=== PATIENT | female | born 1970 | race Caucasian/White ===

== ENCOUNTER 2017-12-29 15:45 | Emergency (ER) | payer OTHER ==
[2017-12-29 16:11] VITALS: RESP 18
--- NOTE | 2017-12-29 16:45 | ED ---
Female Urogenital HPI - General Chief complaint: Urogenital Stated complaint: Female Gu Time Seen by Provider: 12/29/17 16:15 Source: patient, RN notes reviewed Mode of arrival: ambulatory Limitations: no limitations - History of Present Illness Initial comments: Is a 47-year-old female presents emergency Department chief complaint of left groin swelling. Patient's had some swelling which has worsened over the last couple days. She was seen in urgent care sent here for evaluation. She states is no drainage she states is very sore. Patient states that she has been recently working out an area has been rubbing together. Patient denies any vaginal discharge no vaginal bleeding. Denies any fever, chills, abdominal pain. - Related Data Home Medications Medication Instructions Recorded Confirmed Atorvastatin [Lipitor] 20 mg PO HS 12/29/17 12/29/17 LORazepam [Ativan] 1 mg PO HS PRN 12/29/17 12/29/17 Phentermine HCl [Adipex-P] 37.5 mg PO Q48H 12/29/17 12/29/17 Previous Rx's Medication Instructions Recorded Hydrocodone/Acetaminophen [[place] 1 tab PO Q6HR PRN #12 tab 12/29/17 5-325] Ibuprofen [Motrin] 600 mg PO Q8HR PRN #30 tab 12/29/17 Sulfamethox-Tmp 800-160Mg [Bactrim 1 each PO Q12HR #20 tab 12/29/17 Ds] Allergies Allergy/AdvReac Type Severity Reaction Status Date / Time No Known Allergies Allergy Verified 12/29/17 16:43 Review of Systems ROS Statement: Those systems with pertinent positive or pertinent negative responses have been documented in the HPI. ROS Other: All systems not noted in ROS Statement are negative. Past Medical History Past Medical History: Hyperlipidemia History of Any Multi-Drug Resistant Organisms: None Reported Past Surgical History: Appendectomy, Tubal Ligation Past Psychological History: Anxiety Smoking Status: Current every day smoker Past Alcohol Use History: Occasional Past Drug Use History: None Reported General Exam Limitations: no limitations General appearance: alert, in no apparent distress Respiratory exam: Present: normal lung sounds bilaterally. Absent: respiratory distress, wheezes, rales, rhonchi, stridor Cardiovascular Exam: Present: regular rate, normal rhythm, normal heart sounds. Absent: systolic murmur, diastolic murmur, rubs, gallop, clicks GI/Abdominal exam: Present: soft, normal bowel sounds. Absent: distended, tenderness, guarding, rebound, rigid External exam: Absent: normal external exam (Lateral to the left side of the labia there is moderate amount of swelling that is in a more elongated region approximately 4 cm x 1 cm firm nonfluctuant and tender with palpation mild erythema) Skin exam: Present: warm, dry, intact, normal color. Absent: rash Course Vital Signs 12/29/17 12/29/17 16:08 17:23 Temperature 99.2 F 97.7 F Pulse Rate 91 99 Respiratory 18 18 Rate Blood Pressure 131/73 120/73 O2 Sat by Pulse 95 99 Oximetry Medical Decision Making - Medical Decision Making 47-year-old female presents from for swelling to her left groin region. Patient does have area swelling and concern for infection. Clinical exam it appears to be supportive hydradenitis. Patient will be discharged on antibiotics, pain medication follow-up with Dr. Alicia for surgical intervention. Disposition Clinical Impression: Hidradenitis suppurativa Disposition: HOME SELF-CARE Condition: Stable Instructions: Hidradenitis Suppurativa (ED) Additional Instructions: Please return to the Emergency Department if symptoms worsen or any other concerns. Prescriptions: Hydrocodone/Acetaminophen [[place] 5-325] 1 tab PO Q6HR PRN #12 tab PRN Reason: Pain Ibuprofen [Motrin] 600 mg PO Q8HR PRN #30 tab PRN Reason: Pain Sulfamethox-Tmp 800-160Mg [Bactrim Ds] 1 each PO Q12HR #20 tab Is patient prescribed a controlled substance at d/c from ED?: Yes If prescribed controlled substance>3 days was MAPS reviewed?: No When asked, does pt state using other controlled substances?: Yes Referrals: Rick Hannah DO [Primary Care Provider] - 1-2 days Dev Alicia MD [STAFF PHYSICIAN] - 1-2 days Time of Disposition: 17:29
--- NOTE | 2017-12-29 17:06 | US ---
EXAMINATION TYPE: US groin LT DATE OF EXAM: 12/29/2017 COMPARISON: NONE CLINICAL HISTORY: Painful red lump within the left groin after shaving Complex area with peripheral vascularity visualized measuring 1.9 x 1.0 x 1.1 cm IMPRESSION: Suspect soft tissue infection or cellulitis at area of clinical concern.
[2017-12-29] MEDS ORDERED: HYDROcodone/APAP 5-325MG 1 EACH TAB PO STA (17:13)
[2017-12-29 17:33] VITALS: BP 120/73; PULSE 99; TEMP 97.7
== END 2017-12-29 17:39 | disposition home or self-care (01) ==
LOC: EC 15:45
DX: L73.2 Hidradenitis suppurativa (principal); E78.5 Hyperlipidemia, unspecified; F17.200 Nicotine dependence, unspecified, uncomplicated; Z79.899 Other long term (current) drug therapy
CPT/HCPCS: 99283

== ENCOUNTER 2020-09-05 14:14 | Emergency (ER) | payer OTHER ==
[2020-09-05] MEDS ORDERED: SODIUM CHLORIDE 0.9% 1,000 ML IV STA (15:09)
[2020-09-05] MEDS ORDERED: MORPHINE SULFATE 4 MG/ML SYRINGE IVP STA (15:28)
[2020-09-05 15:52] LABS: Basophils % (A) 0 %; Eosinophils % (A) 0 %; HCT 41.8 % (34.0-46.0); HGB 14.1 gm/dL (11.4-16.0); Lymphocytes # (A) 1.7 k/uL (1.0-4.8); Lymphocytes % (A) 13 %; MCH 29.8 pg (25.0-35.0); MCHC 33.7 g/dL (31.0-37.0); MCV 88.2 fL (80.0-100.0); Mean Platelet Volume 8.1; Monocytes # (A) 0.6 k/uL (0-1.0); Monocytes % (A) 5 %; Neutrophils # (A) 11.2 k/uL (1.3-7.7); Neutrophils % (A) 81 %; Platelet Count 201 k/uL (150-450); RBC 4.74 m/uL (3.80-5.40); RDW 12.4 % (11.5-15.5); WBC 13.7 k/uL (3.8-10.6)
[2020-09-05 16:08] LABS: ALT 47 U/L (4-34); AST 25 U/L (14-36); African American GFR (CKD) >90 (>60 ml/min/1.73 sqM); Albumin 4.3 g/dL (3.5-5.0); Alkaline Phosphatase 40 U/L (38-126); Anion Gap 9 mmol/L; Blood Urea Nitrogen 11 mg/dL (7-17); Calcium 9.3 mg/dL (8.4-10.2); Carbon Dioxide 24 mmol/L (22-30); Chloride 103 mmol/L (98-107); Glucose 166 mg/dL (74-99); Non-African American GFR(CKD) >90 (>60 ml/min/1.73 sqM); Potassium 4.1 mmol/L (3.5-5.1); Sodium 136 mmol/L (137-145); Total Bilirubin 0.7 mg/dL (0.2-1.3); Total Protein 7.4 g/dL (6.3-8.2)
--- NOTE | 2020-09-05 16:09 | ED ---
General Adult HPI - General Chief complaint: Extremity Problem,Nontraumatic Stated complaint: Groin pain,+COVID Time Seen by Provider: 09/05/20 14:32 Source: patient, RN notes reviewed Mode of arrival: ambulatory Limitations: no limitations - History of Present Illness Initial comments: She is a 49-year-old female with a past medical history of hyperlipidemia. Patient is presenting to the emergency department for a chief complaint of severe left groin pain. Patient states it is very tender and red. Painful to move. She denies fevers. Patient states this has presented over the past 3-4 days. She denies any associated abdominal pain or rectal pain.Patient has no other complaints at this time including shortness of breath, chest pain, abdomin al pain, nausea or vomiting, headache, or visual changes. - Related Data Home Medications Medication Instructions Recorded Confirmed Acetaminophen Tab [Tylenol Tab] 1,000 mg PO Q6HR PRN 09/05/20 09/05/20 Atorvastatin [Lipitor] 40 mg PO HS 09/05/20 09/05/20 traZODone HCL [Desyrel] 100 mg PO HS 09/05/20 09/05/20 Previous Rx's Medication Instructions Recorded Cephalexin [Keflex] 500 mg PO Q6HR 10 Days #40 cap 09/05/20 Sulfamethox-Tmp 800-160Mg [Bactrim 1 tab PO Q12HR #20 tab 09/05/20 DS 800-160 mg] Allergies Allergy/AdvReac Type Severity Reaction Status Date / Time No Known Allergies Allergy Verified 09/05/20 14:52 Review of Systems ROS Statement: Those systems with pertinent positive or pertinent negative responses have been documented in the HPI. ROS Other: All systems not noted in ROS Statement are negative. Past Medical History Past Medical History: Hyperlipidemia History of Any Multi-Drug Resistant Organisms: None Reported Past Surgical History: Appendectomy, Tubal Ligation Past Psychological History: Anxiety Past Alcohol Use History: Occasional Past Drug Use History: None Reported General Exam Limitations: no limitations General appearance: alert, in no apparent distress Head exam: Present: atraumatic, normocephalic, normal inspection Eye exam: Present: normal appearance, PERRL, EOMI. Absent: scleral icterus, conjunctival injection, periorbital swelling ENT exam: Present: normal exam, mucous membranes moist Neck exam: Present: normal inspection, full ROM. Absent: tenderness, meningismus, lymphadenopathy Respiratory exam: Present: normal lung sounds bilaterally. Absent: respiratory distress, wheezes, rales, rhonchi, stridor Cardiovascular Exam: Present: regular rate, normal rhythm, normal heart sounds. Absent: systolic murmur, diastolic murmur, rubs, gallop, clicks GI/Abdominal exam: Present: soft, normal bowel sounds. Absent: distended, tenderness, guarding, rebound, rigid Rectal exam: Present: other (Patient has erythema and induration noted of the groin extending to the anterior buttock. No obvious abscess or drainage point.) Course Vital Signs 09/05/20 09/05/20 09/05/20 14:19 15:34 16:16 Temperature 98.2 F 99.0 F Pulse Rate 88 79 80 Respiratory 18 18 18 Rate Blood Pressure 122/80 137/66 132/72 O2 Sat by Pulse 97 99 99 Oximetry 09/05/20 17:05 Temperature Pulse Rate 80 Respiratory 17 Rate Blood Pressure 147/81 O2 Sat by Pulse 100 Oximetry Procedures - Incision & Drainage Consent Obtained: verbal consent Site: lower extremity Size (cm): 3 Anesthetic Used: lidocaine 1% Amount (mLs): 7 I&D Cleaning Method: Chloroprep Sterile Field Used?: Yes Scalpel Used: #11 I&D Drainage Obtained: Pus, Blood Culture Obtained?: Yes Patient Tolerated Procedure: well, no complications Medical Decision Making - Medical Decision Making Are stable. Patient is afebrile. Physical exam does reveal erythema noted of the left groin area and anterior buttock. CBC shows leukocytosis of 13.7 with left shift. CMP unremarkable. Pelvis CT with contrast shows cellulitis along the junction of the medial upper left thigh and perineum. There is an accompanying subcutaneous abscess just deep to the skin surface measuring 3.3 x 2.5 cm. No involvement of deeper soft tissue structures. There are also asymmetric left inguinal lymph nodes. Dr. Leslie also evaluated patient, recommending incision and drainage at this time. I did do incision and drainage and copious purulent material was expelled. I did offer patient admission however she much prefers to go home. I had a lengthy discussion with her about strict return parameters. If this gets worse she must be admitted. She will start Keflex and Bactrim. She will return here for any worsening symptoms. She will follow-up with her doctor this week. - Lab Data Result diagrams: 09/05/20 15:30 09/05/20 15:30 Lab Results 09/05/20 09/05/20 09/05/20 Range/Units 15:30 15:30 15:30 WBC 13.7 H (3.8-10.6) k/uL RBC 4.74 (3.80-5.40) m/uL Hgb 14.1 (11.4-16.0) gm/dL Hct 41.8 (34.0-46.0) % MCV 88.2 (80.0-100.0) fL MCH 29.8 (25.0-35.0) pg MCHC 33.7 (31.0-37.0) g/dL RDW 12.4 (11.5-15.5) % Plt Count 201 (150-450) k/uL MPV 8.1 Neutrophils % 81 % Lymphocytes % 13 % Monocytes % 5 % Eosinophils % 0 % Basophils % 0 % Neutrophils # 11.2 H (1.3-7.7) k/uL Lymphocytes # 1.7 (1.0-4.8) k/uL Monocytes # 0.6 (0-1.0) k/uL Eosinophils # 0.0 (0-0.7) k/uL Basophils # 0.0 (0-0.2) k/uL Sodium 136 L (137-145) mmol/L Potassium 4.1 (3.5-5.1) mmol/L Chloride 103 (98-107) mmol/L Carbon Dioxide 24 (22-30) mmol/L Anion Gap 9 mmol/L BUN 11 (7-17) mg/dL Creatinine 0.72 (0.52-1.04) mg/dL Est GFR (CKD-EPI)AfAm >90 (>60 ml/min/1.73 sqM) Est GFR (CKD-EPI)NonAf >90 (>60 ml/min/1.73 sqM) Glucose 166 H (74-99) mg/dL Plasma Lactic Acid Felix 1.5 (0.7-2.0) mmol/L Calcium 9.3 (8.4-10.2) mg/dL Total Bilirubin 0.7 (0.2-1.3) mg/dL AST 25 (14-36) U/L ALT 47 H (4-34) U/L Alkaline Phosphatase 40 (38-126) U/L Total Protein 7.4 (6.3-8.2) g/dL Albumin 4.3 (3.5-5.0) g/dL Disposition Clinical Impression: Cellulitis, Abscess Disposition: HOME SELF-CARE Condition: Good Instructions (If sedation given, give patient instructions): Abscess Incision and Drainage (ED), Abscess (ED) Additional Instructions: Please apply warm compresses to the area several times daily or do baths. P lease take antibiotic as directed. Follow-up with your primary care doctor this week. If you are developing worsening symptoms return to the emergency room. Prescriptions: Sulfamethox-Tmp 800-160Mg [Bactrim DS 800-160 mg] 1 tab PO Q12HR #20 tab Cephalexin [Keflex] 500 mg PO Q6HR 10 Days #40 cap Is patient prescribed a controlled substance at d/c from ED?: No Referrals: Victor Hugo Sales MD [Primary Care Provider] - 1-2 days Time of Disposition: 17:40
[2020-09-05 16:18] VITALS: PULSE 80; TEMP 99
--- NOTE | 2020-09-05 16:21 | CT ---
EXAMINATION TYPE: CT pelvis w con DATE OF EXAM: 09/05/2020 COMPARISON: NONE HISTORY: 49-year-old female pain, groin infection, redness, inner thigh/inguinal crease TECHNIQUE: Contiguous axial scanning of the pelvis following administration of 100 ml Isovue 300 IV c ontrast. Delayed images through the bladder and coronal/sagittal reconstructions performed. CT DLP: 981.6 mGycm Automated exposure control for dose reduction was used. FINDINGS: Visualized kidneys, spleen, and liver show no gross abnormality. Only a small portion of these struct ures are visualized. Nonspecific scattered fluid-filled small bowel loops. No abnormal dilatation. No free air or free flu id seen. No mesenteric or retroperitoneal lymphadenopathy. Mineral scattered stool. No pericolonic inflammatory change. Small fatty umbilical hernia. Uterus is anteverted but retroflexed. Both ovaries are visualized. There is a 2.0 cm dominant follicl e or functional cyst in the right ovary. No abnormal fluid collection in the pelvis. Asymmetrically larger left renal lymph nodes are demonstrated measuring up to 3.7 x 1.3 cm, coronal i mage 36 and axial image 50. There is inflammatory fat stranding along the upper medial left thigh adjacent to the labia majora. T here is a corresponding abscess just deep to the skin surface measuring 3.3 cm cranial caudal by 1.8 cm wide by 2.5 cm AP. Bones mild to moderate degenerative disc disease L4-L5 and L5-S1. IMPRESSION: 1. CELLULITIS ALONG THE JUNCTION OF THE MEDIAL UPPER LEFT THIGH AND PERINEUM. THERE IS AN ACCOMPANYIN G SUBCUTANEOUS ABSCESS JUST DEEP TO THE SKIN SURFACE MEASURING 3.3 X 2.5 X 1.8 CM. NO INVOLVEMENT OF THE DEEPER SOFT TISSUE STRUCTURES. 2. SOME ASYMMETRICALLY LARGER REACTIVE LYMPH NODES IN THE LEFT INGUINAL REGION.
[2020-09-05] MEDS ORDERED: HYDROmorphone 1 MG/ML 1 ML SYRINGE IVP STA (16:55)
[2020-09-05] MEDS ORDERED: cefTRIAXone IN SWFI 1,000 MG/10 ML SYRINGE IVP STA (16:56)
[2020-09-05] MEDS ORDERED: LIDOCAINE 1% INJ 10MG/ML (20 ML MDV) SQ ONE (17:10)
[2020-09-05 17:11] VITALS: BP 147/81; RESP 17
[2020-09-05] MEDS ORDERED: SULFAMETH-TMP DS STARTER PACK 2 TAB BTL PO STA (17:38)
[2020-09-05] MEDS ORDERED: CEPHALEXIN 500MG STARTER PACK 4 CAP BTL PO STA (17:38)
== END 2020-09-05 18:01 | disposition home or self-care (01) ==
LOC: EC 14:14
DX: L02.214 Cutaneous abscess of groin (principal); L03.116 Cellulitis of left lower limb; E78.5 Hyperlipidemia, unspecified; F41.9 Anxiety disorder, unspecified; Z79.899 Other long term (current) drug therapy; Z90.49 Acquired absence of other specified parts of digestive tract; Z98.51 Tubal ligation status
CPT/HCPCS: 36415; 80053; 83605; 85025; 87040; 87070; 87205; 72193; 99284; 96374; 96375 ×2; 96361 ×2; 10060; J2270; J2001; J0696; J1170; Q9967